=== PATIENT | male | born 1955 ===

== ENCOUNTER 2022-11-08 07:34 | Observation (INO) | payer SELFPAY ==
[2022-11-08 08:15] LABS: MEAN CORPUSCULAR HGB CONC 33.3 g/dL (31.0-37.0); MEAN PLATELET VOLUME 10.4 fL (7.40-12.00); NRBC PERCENT 0.2 /100WBC; RED BLOOD CELL COUNT 3.94 M/uL (4.50-5.90); WHITE BLOOD CELL COUNT,WBC 9.42 K/uL (4.0-11.0)
[2022-11-08 08:29] LABS: A/G RATIO 0.9 (0.9-1.6); ALBUMIN 2.8 g/dL (3.4-5.0); BILIRUBIN TOTAL 0.4 mg/dL (0.2-1.0); CALCIUM 8.2 mg/dL (8.5-10.1); CARBON DIOXIDE,CO2 17.5 mmol/L (21.0-32.0); CREATININE 3.2 mg/dL (0.8-1.3); EST CRCL DRUG DOSING (CG) 21.08 mL/min; POTASSIUM,K 4.5 mmol/L (3.5-5.1)
[2022-11-08 09:16] LABS: APPEARANCE,URINE CLEAR; BILIRUBIN,URINE NEGATIVE (NEGATIVE); COLOR,URINE YELLOW; GLUCOSE,URINE NEGATIVE (NEGATIVE); KETONES,URINE NEGATIVE (NEGATIVE); LEUKOCYTE ESTERASE,URINE NEGATIVE (NEGATIVE); NITRITE,URINE NEGATIVE (NEGATIVE); OCCULT BLOOD,URINE NEGATIVE (NEGATIVE); PROTEIN,URINE NEGATIVE (NEGATIVE); UROBILINOGEN,URINE 0.2 EU/dL (<2.0)
[2022-11-08] MEDS ORDERED: Furosemide 40 MG/4 ML VIAL IVPUSH ONE (09:38)
[2022-11-08] MEDS ORDERED: HYDROmorphone 1 MG/ML Syringe IVPUSH ONE (11:50)
[2022-11-08] MEDS: Heparin Sodium 5,000 Units/ML Vial SUBCUT SCH (15:49)
[2022-11-08] MEDS: amLODIPine 5 MG Tab PO SCH (16:10)
[2022-11-09] MEDS: Heparin Sodium 5,000 Units/ML Vial SUBCUT SCH ×2 (03:20→14:11)
[2022-11-09 05:42] LABS: HEMATOCRIT 39.8 % (38.0-50.0); HEMOGLOBIN 12.9 g/dL (13.0-17.0); MEAN CORPUSCULAR HEMOGLOBIN 32.3 pg (27.0-32.0); MEAN CORPUSCULAR HGB CONC 32.4 g/dL (31.0-37.0); MEAN CORPUSCULAR VOLUME 99.7 fL (80.0-98.0); NRBC ABSOLUTE 0 K/uL; PLATELET COUNT,PLT 197 K/uL (150-400); RED BLOOD CELL COUNT 3.99 M/uL (4.50-5.90); WHITE BLOOD CELL COUNT,WBC 8.92 K/uL (4.0-11.0)
[2022-11-09 05:56] LABS: CALCIUM 8.3 mg/dL (8.5-10.1); CARBON DIOXIDE,CO2 21.3 mmol/L (21.0-32.0); CREATININE 3.1 mg/dL (0.8-1.3); EST CRCL DRUG DOSING (CG) 18.83 mL/min; POTASSIUM,K 4.7 mmol/L (3.5-5.1)
[2022-11-09 06:20] LABS: BAND ABSOLUTE MAN 2.1; LYMPHOCYTES ABSOLUTE MAN 2.1 (0.6-2.4); LYMPHOCYTES PERCENT MAN 23 % (16.0-40.0); METAMYELOCYTE ABSOLUTE MAN 0.1; METAMYELOCYTE PERCENT MAN 1 %; MONOCYTES ABSOLUTE MAN 0.8 (0.0-0.8); MONOCYTES PERCENT MAN 9 % (0.0-15.0); SEG NEUTROPHILS PERCENT MAN 67 % (48.0-80.0)
[2022-11-09] MEDS: amLODIPine 5 MG Tab PO SCH (08:18)
[2022-11-09] MEDS ORDERED: amLODIPine 5 MG Tab PO SCH (09:00)
[2022-11-09] MEDS ORDERED: Furosemide 40 MG/4 ML VIAL IVPUSH SCH (09:15)
[2022-11-09] MEDS ORDERED: Furosemide 40 MG/4 ML VIAL IVPUSH STA (09:17)
[2022-11-09] MEDS: Acetaminophen 325 MG Tab PO PRN ×2 (11:01→17:42)
[2022-11-09] MEDS ORDERED: Furosemide 40 MG/4 ML VIAL IVPUSH ONE (17:28)
[2022-11-09] MEDS ORDERED: Ondansetron 4 MG/2 ML SDV IVPUSH PRN (20:23)
[2022-11-10] MEDS: Heparin Sodium 5,000 Units/ML Vial SUBCUT SCH (03:59)
[2022-11-10] MEDS: Acetaminophen 325 MG Tab PO PRN (04:03)
[2022-11-10 05:35] LABS: HEMATOCRIT 37.5 % (38.0-50.0); HEMOGLOBIN 12.5 g/dL (13.0-17.0); MEAN CORPUSCULAR HEMOGLOBIN 32.9 pg (27.0-32.0); MEAN CORPUSCULAR HGB CONC 33.3 g/dL (31.0-37.0); MEAN CORPUSCULAR VOLUME 98.7 fL (80.0-98.0); NRBC ABSOLUTE 0 K/uL; PLATELET COUNT,PLT 183 K/uL (150-400); WHITE BLOOD CELL COUNT,WBC 7.75 K/uL (4.0-11.0)
[2022-11-10 05:51] LABS: CARBON DIOXIDE,CO2 23.4 mmol/L (21.0-32.0); CREATININE 3.7 mg/dL (0.8-1.3); EST CRCL DRUG DOSING (CG) 15.78 mL/min; POTASSIUM,K 4.7 mmol/L (3.5-5.1)
[2022-11-10 06:17] LABS: BAND ABSOLUTE MAN 0.1; BAND PERCENT MAN 1 %; LYMPHOCYTES ABSOLUTE MAN 1.9 (0.6-2.4); LYMPHOCYTES PERCENT MAN 24 % (16.0-40.0)
[2022-11-10 06:18] LABS: EOSINOPHILS ABSOLUTE MAN 0.1 (0.0-0.7); EOSINOPHILS PERCENT MAN 1 % (0.0-7.0); METAMYELOCYTE ABSOLUTE MAN 0.1; METAMYELOCYTE PERCENT MAN 1 %; MONOCYTES ABSOLUTE MAN 0.4 (0.0-0.8); MONOCYTES PERCENT MAN 5 % (0.0-15.0)
[2022-11-10 06:19] LABS: SEG NEUTROPHILS ABSOLUTE MAN 5.3 (1.4-5.7); SEG NEUTROPHILS PERCENT MAN 68 % (48.0-80.0)
[2022-11-10] MEDS: amLODIPine 5 MG Tab PO SCH (09:09)
== END 2022-11-10 12:31 | disposition home or self-care (01) ==
LOC: MW.ED 07:34 → MW.MS 12:42
PROVIDERS: ADMIT Internal Medicine; ATTEND Internal Medicine
DX: M18.12 Unilateral primary osteoarthritis of first carpometacarpal joint, left hand (principal); N17.9 Acute kidney failure, unspecified; R22.43 Localized swelling, mass and lump, lower limb, bilateral; I13.0 Hypertensive heart and chronic kidney disease with heart failure and stage 1 through stage 4 chronic kidney disease, or unspecified chronic kidney disease; N18.9 Chronic kidney disease, unspecified; I50.9 Heart failure, unspecified; R06.02 Shortness of breath; Z20.822 Contact with and (suspected) exposure to COVID-19; Z85.038 Personal history of other malignant neoplasm of large intestine; Z79.899 Other long term (current) drug therapy
CPT/HCPCS: 36415; 71045; 73130; 76775; 80048; 80053; 81003; 83880; 84550; 85025; 85027; 87635; 93005; 93306; 96372; 96374; 96375; 96376; 99285; A9270; G0378; J1170; J1644; J1940; J2405; 99221; 99231; 99238; U0002